=== PATIENT | female | born 1945 | race Caucasian/White ===

== ENCOUNTER 2016-05-03 12:46 | Emergency (ER) | payer BC | END 2016-05-03 13:32 | disposition left against medical advice (07) | LOC: UCCORT 12:46 | DX: Z53.21 Procedure and treatment not carried out due to patient leaving prior to being seen by health care provider (principal) ==

== ENCOUNTER 2016-07-07 13:57 | Emergency (ER) | payer BC ==
[2016-07-07 14:43] VITALS: BP 136/58
--- NOTE | 2016-07-07 15:04 | UC ---
Respiratory Complaint HPI - HPI Summary HPI Summary: The patient comes in today for: 1. Sinus pressure, rhinitis: Onset: 3 days ago. Palliative/provocative: Nothing makes her symptoms better or worse. Quality: Pressure. Region: Frontal and maxillary sinuses Severity: 7/10 Time: Constant. Associated symptoms: Cough: dry. Rhinitis: whitish. Sinus pressure: Present Upper tooth pain: Present. Fever: None. She has been taking OTC Rx including decongestants. * - History of Current Complaint Chief Complaint: UCGeneralIllness Stated Complaint: COUGH CONGESTION Hx Obtained From: Patient Hx Last Menstrual Period: n/a ?: No - Allergies/Home Medications Allergies/Adverse Reactions: Allergies Allergy/AdvReac Type Severity Reaction Status Date / Time Erythromycin Allergy Chest Pain Verified 07/07/16 14:43 Propoxyphene [From Darvon] Allergy Itching Verified 07/07/16 14:43 PMH/Surg Hx/FS Hx/Imm Hx Previously Healthy: No Endocrine History Of: Denies: Diabetes, Thyroid Disease, Hyperthyroidism, Hypothyroidism, Dyslipidemia Cardiovascular History Of: Denies: Cardiac Disorders, Hypertension, Pacemaker/ICD, Myocardial Infarction , Congestive Heart Failure, Atrial Fibrillation, Deep Vein Thrombosis, Bleeding Disorders Respiratory History Of: Denies: COPD, Asthma, Bronchitis, Pneumonia, Pulmonary Embolism GI/ History Of: Denies: Gastroesophageal Reflux, Ulcer, Gastrointestinal Bleed, Gall Bladder Disease, Kidney Stones, Diverticulitis, Renal Disease, Urosepsis Neurological History Of: Denies: TIA, CVA, Dementia, Seizures, Migraine Psychological History Of: Reports: Anxiety, Depression Denies: Bipolar Disorder, Schizophrenia, Post Traumatic Stress Disorder Cancer History Of: Denies: Lung Cancer, Colorectal Cancer, Breast Cancer, Prostate Cancer, Cervical Cancer Other History Of: Negative For: HIV, Hepatitis B, Hepatitis C - Surgical History Surgical History: Yes Surgery Procedure, Year, and Place: S/P HYSTERECTOMY AND LT OOPHERECTOMY; Right oopherectomy 05/2013 - Family History Known Family History: Positive: Cardiac Disease, Other - Father - glaucoma Negative: Hypertension - Social History Occupation: Employed Full-time Alcohol Use: Rare Substance Use Type: None Smoking Status (MU): Never Smoked Tobacco Have You Smoked in the Last Year: No Household Exposure Type: Cigarettes - Immunization History Most Recent Influenza Vaccination: [id number] Hx Tetanus, Diphtheria Vaccination: Yes Review of Systems Constitutional: Negative Skin: Negative Eyes: Negative ENT: Negative, Sore Throat, Nasal Discharge Respiratory: Cough Cardiovascular: Negative Gastrointestinal: Negative Genitourinary: Negative All Other Systems Reviewed And Are Negative: Yes Physical Exam Triage Information Reviewed: Yes Appearance: Well-Appearing, No Pain Distress, Well-Nourished Vital Signs: Initial Vital Signs Temp 98.5 F 07/07/16 14:39 Pulse 63 07/07/16 14:39 Resp 17 07/07/16 14:39 BP 136/58 07/07/16 14:39 Pulse Ox 99 07/07/16 14:39 Vital Signs Reviewed: Yes Eyes: Positive: Conjunctiva Clear, Discharge ENT Exam: Other ENT: Positive: Hearing grossly normal, Nasal drainage. Negative: Pharyngeal erythema, Nasal congestion, TM bulging, TM dull, TM red, Tonsillar swelling, Tonsillar exudate Dental: Negative: Gross Decay/Caries @, Dental Fracture @ Neck: Positive: Supple, Nontender, No Lymphadenopathy. Negative: Nuchal Rigidity Respiratory: Positive: Chest non-tender, Lungs clear, No respiratory distress, No accessory muscle use. Negative: Crackles, Wheezing Cardiovascular: Positive: RRR, No Murmur Abdomen Description: Positive: Nontender, No Organomegaly, Soft. Negative: Distended, Guarding Musculoskeletal: Positive: Strength Intact, ROM Intact Neurological: Positive: Alert, Muscle Tone Normal Psychological: Positive: Age Appropriate Behavior, Consolable Skin: Negative: rashes, breakdown UC Diagnostic Evaluation - Laboratory O2 Sat by Pulse Oximetry: 99 Respiratory Course/Dx - Differential Dx/Diagnosis Provider Diagnoses: sinusitis. Upper respiratory infection. high blood pressure. Discharge - Discharge Plan Condition: Stable Disposition: HOME Patient Education Materials: Sinusitis (ED), Upper Respiratory Infection (ED) Referrals: Emma Ricci MD [Primary Care Provider] - 1 Week (Please see your primary care provider in about one to two weeks to see how well you are doing. If you get worse, please be seen sooner.)
== END 2016-07-07 15:35 | disposition home or self-care (01) ==
LOC: UCCORT 13:57
DX: J32.9 Chronic sinusitis, unspecified (principal); J06.9 Acute upper respiratory infection, unspecified; R03.0 Elevated blood-pressure reading, without diagnosis of hypertension; Z88.1 Allergy status to other antibiotic agents; Z88.5 Allergy status to narcotic agent; Z77.22 Contact with and (suspected) exposure to environmental tobacco smoke (acute) (chronic)
CPT/HCPCS: 99212; G0463

== ENCOUNTER 2016-12-20 07:31 | Day surgery (SDC) | payer BC ==
[~2016-12-20 07:31] MED LIST: Buffered Lidocaine 0.9% SYRIN* 5 ML/SYR SYRINGE INTRADERM ONE; Famotidine IV* 10 MG/ML 2 ML (20 mg) IV ONE; Metoclopramide TAB* 10 MG PO ONE
[2016-12-20] MEDS ORDERED: Metoclopramide TAB* 10 MG ONE (07:36)
[2016-12-20] MEDS ORDERED: Famotidine IV* 10 MG/ML 2 ML (20 mg) ONE (07:36)
[2016-12-20] MEDS ORDERED: ceFAZolin 2 GM PREMIX (*) 50 ML IVPB ONE (07:36)
[2016-12-20] MEDS ORDERED: fentaNYL* 50 MCG/ML 2 ML VIAL (100 MCG VIAL) ONE (07:55)
[2016-12-20] MEDS ORDERED: Lidocaine 2% PF * 5 ML VIAL ONE (07:55)
[2016-12-20] MEDS ORDERED: Propofol* 10 MG/ML 20 ML BTL IV PUSH ONE (07:55)
[2016-12-20] MEDS ORDERED: Ondansetron INJ* 2 MG/ML VIAL ONE (07:55)
[2016-12-20] MEDS ORDERED: Dexamethasone IV* 4 MG/ML 1 ML (4 MG) ONE (07:55)
[2016-12-20] MEDS ORDERED: Ketorolac INJ* 30 MG/ML 1 ML VIAL ONE (07:55)
[2016-12-20] MEDS ORDERED: KETAMINE HCL* 50 MG/ML 10 ML VIAL ONE (07:56)
[2016-12-20] MEDS ORDERED: Midazolam* 1 MG/ML 5 ML VIAL (5 MG) ONE (07:56)
[2016-12-20] MEDS ORDERED: Bupivacaine 0.5% SDV PF* 30 ML VIAL ONE (08:18)
[2016-12-20] MEDS ORDERED: Lidocaine 2% PF* 10 ML AMP ONE ×3 (08:18→09:10)
[2016-12-20] MEDS ORDERED: oxyCODONE/Acetamin 5/325 MG* TAB PO PRN (09:13)
[2016-12-20] MEDS ORDERED: fentaNYL* 50 MCG/ML 2 ML VIAL (100 MCG VIAL) IV PRN (09:13)
[2016-12-20] MEDS ORDERED: EPHEDrine (Pressors)* 50 MG/ML VIAL ONE (09:18)
[2016-12-20 10:30] VITALS: BP 96/78
[2016-12-20] MEDS ORDERED: oxyCODONE/Acetamin 5/325 MG* TAB ONE (11:02)
--- NOTE | 2016-12-21 03:22 | OP ---
DATE OF OPERATION: 12/20/16 - [facility] DATE OF : 45 SURGEON: Cornelio Nayak MD ROTATING EQUIPMENT ENGINEER: Brooklyn Malloy PA-C ANESTHESIOLOGIST: Chinedu Guardado MD ANESTHESIA: Monitored anesthesia care. PRE-OP DIAGNOSIS: Right hallux rigidus and valgus and second toe overlap. POST-OP DIAGNOSIS: Right hallux rigidus and valgus and second toe overlap. OPERATIVE PROCEDURE: Right first MCP joint arthrodesis and third toe FDL release. DESCRIPTION OF PROCEDURE: The patient was taken to the operating room where longitudinal incision was made over the dorsum of the first MCP joint. Mediolateral flap was raised to allow visualization of the joint, which was prepared for arthrodesis using a small power rajendra. We pinned the joint with an oblique 4.0 mm cannulated lag screw and fixed it dorsally with an F3 rigid Y plate. Combination of locking and nonlocking screws were used. The second toe now was in more of a neutral position at least first toe that the third toe was tending to underlap and did show soft tissue contracture at the DIP level. The percutaneous FDL release was made through a plantar 5 mm incision transversely at the undersurface of the middle phalanx. We then irrigated all wounds closing with the Vicryl subcutaneous for the great toe, nylon for the skin, and then nylon suture for the third toe. Plaster dressings applied. [id number]/CPS #: [id number] MTDD
--- NOTE | 2016-12-21 07:18 | RAD ---
INDICATION: Right foot fusion, first metatarsal-phalangeal joint. COMPARISON: Comparison is made with a prior x-ray study of the right foot from August 16, 2015. TECHNIQUE: 3.7 seconds of intermittent fluoroscopic guidance were provided and 5 spot films of the right foot were obtained in the operating room. FINDINGS: The films demonstrate placement of a surgical screw and a metallic plate transfixed with multiple surgical screws spanning the first metatarsal-phalangeal joint. IMPRESSION: INTRAOPERATIVE CONTROL FILMS. CPT II Codes: 6045F
== END 2016-12-20 11:18 | disposition home or self-care (01) ==
LOC: OR 07:31
PROVIDERS: ATTEND Orthopaedic Surgery
DX: M20.21 Hallux rigidus, right foot (principal); M20.11 Hallux valgus (acquired), right foot; M20.5X1 Other deformities of toe(s) (acquired), right foot; Z88.1 Allergy status to other antibiotic agents; Z88.5 Allergy status to narcotic agent; F41.9 Anxiety disorder, unspecified
CPT/HCPCS: 76000; A9270-GY; C1713; C1776; J0690; J1100; J1885; J2001; J2250; J2405; J2704; J3010

== ENCOUNTER 2017-04-12 10:39 | Emergency (ER) | payer BC ==
[2017-04-12 11:37] VITALS: BP 118/56
--- NOTE | 2017-04-12 12:11 | UC ---
Respiratory Complaint HPI - HPI Summary HPI Summary: day 2 of cough laryngitis and chills--"When every I get Bronchitis I get Laryngitis" - History of Current Complaint Chief Complaint: UCRespiratory Stated Complaint: COUGH,FEVER Time Seen by Provider: 04/12/17 11:32 Hx Obtained From: Patient Hx Last Menstrual Period: n/a ?: No Onset/Duration: Sudden Onset, Lasting Days - day 2, Still Present Timing: Constant Severity Initially: Moderate Severity Currently: Moderate Character: Cough: Nonproductive Aggravating Factors: Nothing Alleviating Factors: Nothing Associated Signs And Symptoms: Positive: Chills, URI - Allergies/Home Medications Allergies/Adverse Reactions: Allergies Allergy/AdvReac Type Severity Reaction Status Date / Time Erythromycin Allergy Chest Pain Verified 04/12/17 11:37 Propoxyphene [From Darvon] Allergy Itching Verified 04/12/17 11:37 PMH/Surg Hx/FS Hx/Imm Hx Previously Healthy: Yes Psychological History: Depression Other History Of: Negative For: HIV, Hepatitis B, Hepatitis C - Surgical History Surgical History: Yes Surgery Procedure, Year, and Place: S/P HYSTERECTOMY AND LT OOPHERECTOMY; Right oopherectomy 05/2013 [facility] - Family History Known Family History: Positive: Unknown, Cardiac Disease, Other - Father - glaucoma Negative: Hypertension - Social History Occupation: Retired Lives: With Family Alcohol Use: Rare Substance Use Type: None Smoking Status (MU): Never Smoked Tobacco Amount Used/How Often: Beer a week Have You Smoked in the Last Year: No - Immunization History Most Recent Influenza Vaccination: 9251-6841 Hx Tetanus, Diphtheria Vaccination: Yes Review of Systems Constitutional: Chills Skin: Negative Eyes: Negative ENT: Other - Laryngitis Respiratory: Cough Cardiovascular: Negative Gastrointestinal: Negative Genitourinary: Negative Motor: Negative Neurovascular: Negative Musculoskeletal: Negative Neurological: Negative Psychological: Negative Is Patient Immunocompromised?: No All Other Systems Reviewed And Are Negative: Yes Physical Exam Triage Information Reviewed: Yes Appearance: Well-Appearing, No Pain Distress, Well-Nourished Vital Signs: Initial Vital Signs Temp 98.1 F 04/12/17 11:33 Pulse 66 04/12/17 11:33 Resp 18 04/12/17 11:33 BP 118/56 04/12/17 11:33 Pulse Ox 96 04/12/17 11:33 Vital Signs Reviewed: Yes Eye Exam: Normal Eyes: Positive: Conjunctiva Clear ENT Exam: Normal ENT: Positive: Normal ENT inspection, Hearing grossly normal, Pharynx normal, TMs normal, Hoarse voice, Uvula midline. Negative: Nasal congestion, Nasal drainage, Trismus, Dental tenderness, Sinus tenderness Dental Exam: Normal Dental: Positive: Percussion Tenderness @, Gross Decay/Caries @, Dental Fracture @ Neck exam: Normal Neck: Positive: Supple, Nontender, No Lymphadenopathy Respiratory Exam: Normal Respiratory: Positive: Chest non-tender, Lungs clear, Normal breath sounds, No respiratory distress Cardiovascular Exam: Normal Cardiovascular: Positive: RRR, No Murmur, Pulses Normal, Brisk Capillary Refill Musculoskeletal Exam: Normal Musculoskeletal: Positive: Strength Intact, ROM Intact, No Edema Neurological Exam: Normal Neurological: Positive: Alert, Muscle Tone Normal Psychological Exam: Normal Skin Exam: Normal UC Diagnostic Evaluation - Laboratory O2 Sat by Pulse Oximetry: 96 Diagnostic Studies Comment: influenza A/B (-), RST (-) Respiratory Course/Dx - Course Course Of Treatment: Amoxicillin, albuterol, diflucan PRN follow with pcp - Differential Dx/Diagnosis Provider Diagnoses: Bronchitis Discharge - Discharge Plan Condition: Stable Disposition: HOME Prescriptions: Albuterol HFA INHALER* [Ventolin HFA Inhaler*] 2 puff INH Q4H PRN #1 mdi PRN Reason: Cough Amoxicillin PO (*) [Amoxicillin 875 MG (*)] 875 mg PO BID #20 tab Fluconazole [Diflucan 150 MG (NF)] 150 mg PO ONCE #2 tab Patient Education Materials: Laryngitis (ED), Acute Bronchitis (ED) Referrals: Emma Ricci MD [Primary Care Provider] - 2 Weeks
== END 2017-04-12 12:31 | disposition home or self-care (01) ==
LOC: UCCORT 10:39
DX: J40 Bronchitis, not specified as acute or chronic (principal); Z88.1 Allergy status to other antibiotic agents; Z88.5 Allergy status to narcotic agent
CPT/HCPCS: 87502; 87651; 99212; G0463

== ENCOUNTER 2017-05-17 11:04 | Emergency (ER) | payer BC ==
[2017-05-17 13:59] VITALS: BP 128/60
--- NOTE | 2017-05-17 14:09 | UC ---
Respiratory Complaint HPI - HPI Summary HPI Summary: cough x 2 days cough is dry , + nasal congestion , pnd, sore throat, + fever, chills , sever body aches and fatigue - History of Current Complaint Chief Complaint: UCGeneralIllness Stated Complaint: STOMACH ACHE/FEVER Time Seen by Provider: 05/17/17 14:02 Hx Obtained From: Patient Hx Last Menstrual Period: n/a Onset/Duration: Lasting Minutes, Lasting Days - 2, Still Present Timing: Constant Severity Initially: Moderate Severity Currently: Severe Pain Intensity: 0 Character: Cough: Nonproductive Aggravating Factors: Exertion, Deep Breaths Alleviating Factors: Nothing Associated Signs And Symptoms: Positive: Fever, Chills, URI, Nasal Congestion. Negative: Dizziness, Calf Pain, Calf Swelling - Allergies/Home Medications Allergies/Adverse Reactions: Allergies Allergy/AdvReac Type Severity Reaction Status Date / Time MS Erythromycin Allergy Chest Pain Verified 05/17/17 13:59 [Erythromycin] MS Propoxyphene [From Darvon] Allergy Itching Verified 05/17/17 13:59 PMH/Surg Hx/FS Hx/Imm Hx GI/ History: Ulcer Other History Of: Negative For: HIV, Hepatitis B, Hepatitis C - Surgical History Surgical History: Yes Surgery Procedure, Year, and Place: S/P HYSTERECTOMY AND LT OOPHERECTOMY; Right oopherectomy 05/2013 [facility] - Family History Known Family History: Positive: Unknown, Cardiac Disease, Other - Father - glaucoma Negative: Hypertension - Social History Alcohol Use: Rare Substance Use Type: None Smoking Status (MU): Never Smoked Tobacco Amount Used/How Often: Beer a week Have You Smoked in the Last Year: No Household Exposure Type: Cigarettes - Immunization History Most Recent Influenza Vaccination: [id number] Hx Tetanus, Diphtheria Vaccination: Yes Review of Systems Constitutional: Fever, Chills, Fatigue Skin: Negative Eyes: Negative ENT: Sore Throat, Nasal Discharge Respiratory: Cough Cardiovascular: Negative Gastrointestinal: Negative Is Patient Immunocompromised?: No All Other Systems Reviewed And Are Negative: Yes Physical Exam Triage Information Reviewed: Yes Appearance: Well-Appearing, No Pain Distress, Well-Nourished Vital Signs: Initial Vital Signs Temp 99.2 F 05/17/17 13:55 Pulse 108 05/17/17 13:55 Resp 18 05/17/17 13:55 BP 128/60 05/17/17 13:55 Pulse Ox 95 05/17/17 13:55 Vital Signs Reviewed: Yes Eyes: Positive: Conjunctiva Clear ENT: Positive: Normal ENT inspection, Hearing grossly normal, Pharyngeal erythema, Nasal congestion, TMs normal Neck exam: Normal Neck: Positive: Supple, Nontender, No Lymphadenopathy Respiratory: Positive: Chest non-tender, Lungs clear, Normal breath sounds Cardiovascular: Positive: Tachycardia Abdominal Exam: Normal Abdomen Description: Positive: Nontender, Soft. Negative: CVA Tenderness (R), CVA Tenderness (L), Distended, Guarding Bowel Sounds: Positive: Present Skin Exam: Normal UC Diagnostic Evaluation - Laboratory O2 Sat by Pulse Oximetry: 95 Respiratory Course/Dx - Differential Dx/Diagnosis Provider Diagnoses: influenza Discharge - Discharge Plan Condition: Stable Disposition: HOME Prescriptions: Oseltamivir CAP* [Tamiflu CAP*] 75 mg PO BID #10 cap Patient Education Materials: Influenza (ED) Referrals: Emma Ricci MD [Primary Care Provider] - 7 Days
== END 2017-05-17 14:15 | disposition home or self-care (01) ==
LOC: UCCORT 11:04
DX: J11.1 Influenza due to unidentified influenza virus with other respiratory manifestations (principal); Z72.89 Other problems related to lifestyle; Z77.22 Contact with and (suspected) exposure to environmental tobacco smoke (acute) (chronic)
CPT/HCPCS: 99212; G0463

== ENCOUNTER 2017-06-22 14:17 | Emergency (ER) | payer BC ==
[2017-06-22 14:46] VITALS: BP 118/65
--- NOTE | 2017-06-22 14:53 | UC ---
Respiratory Complaint HPI - HPI Summary HPI Summary: 71 yo female with cough x 3-4 days She had the flu ago a month ago sinus pressure and pain low grade temp productive couigh - History of Current Complaint Chief Complaint: UCRespiratory Stated Complaint: CONGESTION UPPER RESPIRATORY Time Seen by Provider: 06/22/17 14:47 Hx Obtained From: Patient Hx Last Menstrual Period: n/a Onset/Duration: Gradual Onset, Lasting Days Timing: Constant Severity Initially: Moderate Severity Currently: Moderate Pain Intensity: 3 Character: Cough: Productive Aggravating Factors: Nothing Alleviating Factors: Nothing Associated Signs And Symptoms: Positive: Wheezing, Nasal Congestion, Sinus Discomfort - Allergies/Home Medications Allergies/Adverse Reactions: Allergies Allergy/AdvReac Type Severity Reaction Status Date / Time erythromycin base Allergy See Comment Verified 06/22/17 14:43 propoxyphene [From Darvon] Allergy Itching Verified 06/22/17 14:43 Home Medications: Home Medications Phenylephrine/Dm/Acetaminop/GG [Mucinex Fast-Max Cold-Flu Liq] 180 ml PO ONCE [History Confirmed 06/22/17] PMH/Surg Hx/FS Hx/Imm Hx Previously Healthy: Yes Respiratory History: Bronchitis, Pneumonia Other History Of: Negative For: HIV, Hepatitis B, Hepatitis C - Surgical History Surgical History: Yes Surgery Procedure, Year, and Place: S/P HYSTERECTOMY AND LT OOPHERECTOMY; Right oopherectomy 05/2013 [facility] - Family History Known Family History: Positive: Cardiac Disease, Other - Father - glaucoma Negative: Hypertension - Social History Alcohol Use: Rare Substance Use Type: None Smoking Status (MU): Never Smoked Tobacco Amount Used/How Often: Beer a week Have You Smoked in the Last Year: No Household Exposure Type: Cigarettes - Immunization History Most Recent Influenza Vaccination: 0612-1434 Hx Tetanus, Diphtheria Vaccination: Yes Review of Systems Constitutional: Fever Skin: Negative Eyes: Negative ENT: Negative Respiratory: Cough Cardiovascular: Negative Gastrointestinal: Negative Genitourinary: Negative Motor: Negative Neurovascular: Negative Musculoskeletal: Negative Neurological: Negative Psychological: Negative Is Patient Immunocompromised?: No All Other Systems Reviewed And Are Negative: Yes Physical Exam Triage Information Reviewed: Yes Appearance: Well-Appearing, No Pain Distress, Well-Nourished Vital Signs: Initial Vital Signs Temp 98.4 F 06/22/17 14:40 Pulse 74 06/22/17 14:40 Resp 22 06/22/17 14:40 BP 118/65 06/22/17 14:40 Pulse Ox 99 06/22/17 14:40 Vital Signs Reviewed: Yes Eyes: Positive: Conjunctiva Clear ENT: Positive: Hearing grossly normal, Nasal congestion, Sinus tenderness, Uvula midline. Negative: Nasal drainage, Tonsillar swelling, Tonsillar exudate , Trismus, Muffled voice, Hoarse voice Dental: Positive: Other: - upper plate Neck: Positive: Supple, Nontender, No Lymphadenopathy Respiratory: Positive: Normal breath sounds, No respiratory distress, No accessory muscle use, Wheezing - with forced expiration only Cardiovascular: Positive: RRR, No Murmur Abdomen Description: Positive: Nontender, No Organomegaly, Soft Musculoskeletal: Positive: ROM Intact, No Edema Neurological: Positive: Alert Psychological Exam: Normal Skin Exam: Normal UC Diagnostic Evaluation - Laboratory O2 Sat by Pulse Oximetry: 99 - normal not hypoxic Respiratory Course/Dx - Differential Dx/Diagnosis Provider Diagnoses: acute bronchitis with bronchospasm. acute sinusitis Discharge - Discharge Plan Condition: Stable Disposition: HOME Prescriptions: Amoxicillin PO (*) [Amoxicillin 875 MG (*)] 875 mg PO BID #20 tab Fluticasone NASAL SPRAY 50MCG* [Flonase NASAL SPRAY 50MCG*] 2 spray BOTH NARES DAILY #1 btl Patient Education Materials: Sinusitis (ED), Acute Bronchitis (ED) Forms: *Work Release Referrals: Emma Ricci MD [Primary Care Provider] -
[2017-06-22] MEDS ORDERED: Albuterol HFA INHALER* 8 gm MDI INH ONE (14:59)
== END 2017-06-22 15:13 | disposition home or self-care (01) ==
LOC: UCCORT 14:17
DX: J20.9 Acute bronchitis, unspecified (principal); J01.90 Acute sinusitis, unspecified; Z88.3 Allergy status to other anti-infective agents; Z88.8 Allergy status to other drugs, medicaments and biological substances
CPT/HCPCS: 99212; A9270-GY; G0463

== ENCOUNTER 2017-07-01 09:24 | Emergency (ER) | payer BC ==
[2017-07-01 10:07] VITALS: BP 144/60
--- NOTE | 2017-07-01 10:55 | UC ---
Complaint Female HPI - HPI Summary HPI Summary: 71 yo female with onset at 2 AM of dysuria/urgency/freqiency and hematuria - History Of Current Complaint Chief Complaint: UCGU Stated Complaint: URINARY COMPLAINT Time Seen by Provider: 07/01/17 10:35 Hx Obtained From: Patient Hx Last Menstrual Period: n/a Onset/Duration: Sudden Onset, Lasting Hours Timing: Intermittent Severity Initially: Severe Severity Currently: Mild Pain Intensity: 9 - severe when urinating Pain Scale Used: 0-10 Numeric Character: Burning Aggravating Factor(s): Nothing Associated Signs And Symptoms: Positive: Negative - Allergies/Home Medications Allergies/Adverse Reactions: Allergies Allergy/AdvReac Type Severity Reaction Status Date / Time erythromycin base Allergy See Comment Verified 07/01/17 10:07 propoxyphene [From Darvon] Allergy Itching Verified 07/01/17 10:07 PMH/Surg Hx/FS Hx/Imm Hx Previously Healthy: Yes Respiratory History: Bronchitis Psychological History: Depression Other History Of: Negative For: HIV, Hepatitis B, Hepatitis C - Surgical History Surgical History: Yes Surgery Procedure, Year, and Place: S/P HYSTERECTOMY AND LT OOPHERECTOMY; Right oopherectomy 05/2013 [facility] - Family History Known Family History: Positive: Cardiac Disease, Other - Father - glaucoma Negative: Hypertension - Social History Alcohol Use: Rare Substance Use Type: None Smoking Status (MU): Never Smoked Tobacco Amount Used/How Often: Beer a week Have You Smoked in the Last Year: No Household Exposure Type: Cigarettes - Immunization History Most Recent Influenza Vaccination: [id number] Hx Tetanus, Diphtheria Vaccination: Yes Review of Systems Constitutional: Negative Skin: Negative Eyes: Negative ENT: Negative Respiratory: Negative Cardiovascular: Negative Gastrointestinal: Negative Genitourinary: Dysuria, Hematuria, Frequency, Urgency Motor: Negative Neurovascular: Negative Musculoskeletal: Negative Neurological: Negative Psychological: Negative Is Patient Immunocompromised?: No All Other Systems Reviewed And Are Negative: Yes Physical Exam Triage Information Reviewed: Yes Appearance: Well-Appearing, No Pain Distress, Well-Nourished Vital Signs: Initial Vital Signs Temp 98.4 F 07/01/17 10:00 Pulse 82 07/01/17 10:00 Resp 16 07/01/17 10:00 BP 144/60 07/01/17 10:00 Pulse Ox 100 07/01/17 10:00 Vital Signs Reviewed: Yes Eyes: Positive: Conjunctiva Clear ENT: Positive: Hearing grossly normal. Negative: Nasal congestion, Nasal drainage, Trismus, Muffled voice, Hoarse voice Neck: Positive: Nontender, No Lymphadenopathy Respiratory: Positive: Lungs clear, Normal breath sounds, No respiratory distress, No accessory muscle use Cardiovascular: Positive: RRR, No Murmur Abdomen Description: Positive: Nontender, No Organomegaly. Negative: CVA Tenderness (R), CVA Tenderness (L) Musculoskeletal: Positive: ROM Intact, No Edema Neurological: Positive: Alert, Muscle Tone Normal Psychological Exam: Normal Skin Exam: Normal Diagnostics - Laboratory Diagnostic Studies Completed/Ordered: +++blood, ++ leuks Complaint Female Dx - Differential Dx/Diagnosis Provider Diagnoses: dysuria. ? cystitis Discharge - Sign-Out/Discharge Documenting (check all that apply): Discharge - Discharge Plan Condition: Stable Disposition: HOME Prescriptions: Fluconazole 150 MG (NF) [Diflucan 150 mg (NF)] 150 mg PO ONCE #2 tab Nitrofurantoin Macrocrystal [Nitrofurantoin] 100 mg PO BID #10 capsule Phenazopyridine TAB* [Pyridium TAB*] 100 mg PO TID #6 tab Patient Education Materials: Dysuria (ED) Referrals: Emma Ricci MD [Primary Care Provider] - 3 Days (if not better) - Billing Disposition and Condition Condition: STABLE Disposition: HOME
== END 2017-07-01 10:50 | disposition home or self-care (01) ==
LOC: UCCORT 09:24
DX: R30.0 Dysuria (principal); Z88.1 Allergy status to other antibiotic agents; Z88.5 Allergy status to narcotic agent
CPT/HCPCS: 81003; 87077; 87086; 87186; 99212; G0463